=== PATIENT | male | born 1975 | race Caucasian/White ===

== ENCOUNTER 2018-08-17 11:54 | Emergency (ER) | payer SELFPAY ==
[~2018-08-17] VITALS: Ht 180.3 cm; Wt 94.4 kg
[2018-08-17 12:07] VITALS: BP 173/96
[2018-08-17] MEDS ORDERED: SODIUM CHLORIDE 0.9% 1,000 ML IV ONE (14:15)
[2018-08-17] MEDS ORDERED: KETOROLAC 30MG/ML VIAL IV ONE (14:15)
[2018-08-17 14:51] LABS: BASOPHILS % 0.4 % (0.0-2.0); EOSINOPHILS % 0.7 % (0.0-5.0); HEMATOCRIT. 46.1 % (42.0-52.0); HEMOGLOBIN. 15.6 g/dL (14.0-18.0); LYMPHOCYTES % 28.7 % (20.0-50.0); MEAN CORPUSCULAR HEMOGLOBIN 30.5 pg (28.0-32.0); MEAN CORPUSCULAR VOLUME 89.9 fL (80.0-94.0); MEAN PLATELET VOLUME 10.6 fl (7.4-10.4); MONOCYTES % 5.9 % (2.0-8.0); NEUTROPHILS % 64.3 % (40.0-76.0); PLATELET 202 x1000/uL (130-400); RED BLOOD CELL COUNT 5.12 mill/uL (4.7-6.1); RED CELL DISTRIBUTION WIDTH 13.7 % (11.6-14.6)
[2018-08-17 14:59] LABS: CHLORIDE 106 mEq/L (98-107)
== END 2018-08-17 15:28 | disposition left against medical advice (07) ==
LOC: ER 11:54
DX: R53.1 Weakness (principal); N48.30 Priapism, unspecified; F41.9 Anxiety disorder, unspecified; Z87.19 Personal history of other diseases of the digestive system
CPT/HCPCS: 36415; 80053; 82962; 85025; 99283; J7030; J1885